=== PATIENT | male | born 1960 | race Caucasian/White ===

== ENCOUNTER 2016-10-31 19:41 | Observation (INO) | payer BC ==
[2016-10-31] MEDS ORDERED: Albuterol/Ipratropium 3.0-0.5 MG/3 ML Neb Soln ONE (19:46)
[2016-10-31] MEDS ORDERED: Albuterol/Ipratropium 3.0-0.5 MG/3 ML Neb Soln NEB ONE ×2 (19:52→20:15)
--- NOTE | 2016-10-31 20:27 | EDM.PDOC ---
ED HISTORY OF PRESENT ILLNESS - General Chief Complaint: Respiratory Problem Stated Complaint: TROUBLE BREATHING Time Seen by Provider: 10/31/16 19:55 Source of Information: Reports: Patient History Limitations: Reports: No limitations - History of Present Illness INITIAL COMMENTS - FREE TEXT/NARRATIVE: HISTORY AND PHYSICAL: History of present illness: Patient is a 56 year old smoker who presents to the emergency department with cough and shortness of breath for 3 days. He thought it was just a cold and so he has been using alkaseltzer but today his cough was making him lightheaded and he feels tightness in his chest. He smokes and has mild history of COPD. He uses an albuterol inhaler PRN. No vomiting. No fevers. No sore throat or headache. Review of systems: As per history of present illness and below otherwise all systems reviewed and negative. Past medical history: As per history of present illness and as reviewed below otherwise noncontributory. Surgical history: As per history of present illness and as reviewed below otherwise noncontributory. Social history: No reported history of drug or alcohol abuse. Family history: As per history of present illness and as reviewed below otherwise noncontributory. Physical exam: General: Non toxic. Vitals reviewed. Hypoxic and mildly tachypneic. HEENT: Atraumatic, normocephalic, mucous membranes moist, throat clear, neck supple, nontender, trachea midline. Lungs: Coarse breath sounds, expiratory wheezing. Heart: S1S2, regular, negative for clicks, rubs, or JVD. Abdomen: Soft, nondistended, nontender. Pelvis: Stable nontender. Genitourinary: Deferred. Rectal: Deferred. Extremities: Atraumatic, negative for cords or calf pain or edema. Neurovascular unremarkable. Neuro: Awake, alert, oriented. Motor and sensory unremarkable throughout. Exam nonfocal. Diagnostics: chest xray Therapeutics: duo neb x 2 Impression: COPD exacerbation Plan: I spoke with Dr. Fields about admission based off his hypoxia on RA on admission. He accepted admission and patient was agreeable to stay. Definitive disposition and diagnosis as appropriate pending reevaluation and review of above. - Related Data Allergies/ADRs: Allergies Allergy/AdvReac Type Severity Reaction Status Date / Time latex Allergy Blisters Verified 10/31/16 19:50 Home Meds: Home Meds Albuterol [Ventolin HFA] 1 - 2 puff INH ASDIRECTED 08/14/15 [History] Aspirin [Halfprin] 1 tab PO DAILY 08/14/15 [History] Glimepiride [Glimepiride] 1 tab PO BID 08/14/15 [History] Krill/Om-3/DHA/EPA/Phospho/Ast [Krill Oil 1,000 mg Softgel] 1 cap PO DAILY 08/14 [History] Linagliptin [Tradjenta] 1 tab PO DAILY 08/14/15 [History] Multivitamin [Multi-Day Vitamins] 1 tab PO DAILY 08/14/15 [History] Pioglitazone HCl 2 tab PO DAILY 08/14/15 [History] Ramipril [Altace] 1 tab PO DAILY 08/14/15 [History] Simvastatin [Simvastatin] 1 tab PO DAILY 08/14/15 [History] metFORMIN HCl [Metformin HCl ER] 2 tab PO BIDMEALS 08/14/15 [History] Past Medical History Cardiovascular History: Reports: Hypertension Respiratory History: Reports: Asthma, COPD Gastrointestinal History: Reports: Other (see below) Other Gastrointestinal History: Heartburn occasionally Musculoskeletal History: Reports: Other (see below) Other Musculoskeletal History: Left sided Sciatic Nerve Pain, hx: fracturing knuckles, Rt arm, finger, ankle Endocrine/Metabolic History: Reports: Diabetes, type II, Obesity/BMI 30+ Hematologic History: Reports: Blood transfusion(s) Other Hematologic History: Blood transfusion after my tonsillectomy when I was 10 yrs old Dermatologic History: Reports: Other (see below) Other Dermatologic History: Rash to hands, think it is from 'welding' - Infectious Disease History Infectious Disease History: Reports: Chicken pox, Measles, Mumps - Past Surgical History HEENT Surgical History: Reports: Naso-sinus surgery, Tonsillectomy GI Surgical History: Reports: Appendectomy Social & Family History - Family History Family Medical History: Noncontributory - Tobacco Use Smoking Status *Q: Current Every Day Smoker Years of Tobacco use: 35 Packs/Tins Daily: 2.5 - Caffeine Use Caffeine Use: Reports: None - Recreational Drug Use Recreational Drug Use: No Drug Use in Last 12 Months: No ED ROS GENERAL - Review of Systems Review Of Systems: ROS reveals no pertinent complaints other than HPI. ED EXAM, GENERAL - Physical Exam Exam: See Below (See dictation) Course - Vital Signs Last Recorded V/S: Last Vital Signs Temp 37.2 C 10/31/16 19:48 Pulse 93 10/31/16 20:35 Resp 20 10/31/16 20:35 BP 131/76 10/31/16 20:35 Pulse Ox 99 10/31/16 20:35 - Orders/Labs/Meds Orders: Active Orders 24 hr Category Date Time Status Patient Status [ADT] Routine ADT 10/31/16 21:00 Active Patient Status [ADT] Stat ADT 10/31/16 21:12 Ordered Oxygen Therapy [RC] PRN Care 10/31/16 21:00 Active POC Glucose [Blood Glucose Check, Bedside] [RC] Care 10/31/16 21:08 Active QIDACANDBED RT Aerosol Therapy [RC] ASDIRECTED Care 10/31/16 19:52 Active RT Aerosol Therapy [RC] ASDIRECTED Care 10/31/16 20:15 Ordered RT Aerosol Therapy [RC] ASDIRECTED Care 10/31/16 21:02 Active VTE/DVT Education [RC] PER UNIT ROUTINE Care 10/31/16 21:00 Active Vital Signs [RC] Q4H Care 10/31/16 21:00 Active ADA Diabetic [[place] Diet] [DIET Diet 10/31/16 Breakfast Active ] Chest 2V [CR] Stat Exams 10/31/16 20:15 Ordered BASIC METABOLIC PANEL,BMP [CHEM] AM Lab 11/01/16 05:11 Ordered CBC WITH AUTO DIFF [HEME] AM Lab 11/01/16 05:11 Ordered CULTURE BLOOD [BC] Stat Lab 10/31/16 20:41 Ordered CULTURE BLOOD [BC] Stat Lab 10/31/16 20:41 Ordered INFLUENZA A+B AG SCREEN [RM] Stat Lab 10/31/16 20:40 Uncollected MAGNESIUM [CHEM] AM Lab 11/01/16 05:11 Ordered Acetaminophen [Tylenol] Med 10/31/16 21:00 Ordered 650 mg PO Q4H PRN Albuterol/Ipratropium [DuoNeb 3.0-0.5 MG/3 ML] Med 10/31/16 22:00 Ordered 3 ml NEB Q4HRRT Aspirin [Halfprin] Med 11/01/16 09:00 Ordered DOSE mg PO DAILY Azithromycin [Zithromax] 500 mg Med 10/31/16 20:40 Ordered Sodium Chloride 0.9% [Normal Saline] 250 ml IV ONETIME Bisacodyl [Dulcolax] Med 10/31/16 21:00 Ordered 5 mg PO DAILY PRN Enoxaparin [Lovenox] Med 11/01/16 16:00 Ordered 40 mg SUBCUT DAILY Glimepiride Med 11/01/16 09:00 Ordered DOSE mg PO BID Insulin Aspart [NovoLOG] Med 10/31/16 21:15 Ordered See Protocol SUBCUT ACBED Krill/Om-3/DHA/EPA/Phospho/Ast [Krill Oil 1,000 mg Med 11/01/16 09:00 Ordered Softgel] 1 cap PO DAILY Levofloxacin/Dextrose 5%-Water [Levaquin in D5W 500 MG/ Med 11/01/16 08:00 Ordered 100 ML] 500 mg Premix Bag 1 bag IV Q24H Linagliptin Med 11/01/16 09:00 Ordered 1 tab PO DAILY Multivitamins [Tab-A-Clayton] Med 11/01/16 09:00 Ordered 1 tab PO DAILY Pioglitazone [Actos] Med 11/01/16 09:00 Ordered DOSE mg PO DAILY Ramipril [Altace] Med 11/01/16 09:00 Ordered DOSE mg PO DAILY Simvastatin [Zocor] Med 11/01/16 09:00 Ordered DOSE mg PO DAILY Temazepam [Restoril] Med 10/31/16 21:00 Ordered 15 mg PO BEDTIME PRN metFORMIN HCl [Metformin HCl ER] Med 11/01/16 08:00 Ordered 2 tab PO BIDMEALS methylPREDNISolone Sod Succ [Solu-MEDROL] Med 11/01/16 08:00 Ordered 125 mg IVPUSH Q12H Blood Culture x2 Reflex Set [OM.PC] Stat Oth 10/31/16 20:40 Ordered Resuscitation Status Routine Resus Stat 10/31/16 21:00 Ordered Medication Orders Acetaminophen (Tylenol) 650 mg PO Q4H PRN PRN Reason: Pain (Mild 1-3)/fever Albuterol/Ipratropium (Duoneb 3.0-0.5 Mg/3 Ml) 3 ml NEB Q4HRRT [facility] Aspirin (Halfprin) mg PO DAILY [facility] Bisacodyl (Dulcolax) 5 mg PO DAILY PRN PRN Reason: Constipation Enoxaparin Sodium (Lovenox) 40 mg SUBCUT DAILY [facility] Glimepiride (Glimepiride) mg PO BID [facility] Azithromycin 500 mg/ Sodium (Chloride) 250 mls @ 250 mls/hr IV ONETIME ONE Stop: 10/31/16 21:39 Levofloxacin/Dextrose 500 mg/ (Premix) 100 mls @ 100 mls/hr IV Q24H [facility] Insulin Aspart (Novolog) 0 unit SUBCUT ACBED [facility] PRN Reason: Protocol Methylprednisolone Sodium Succinate (Solu-Medrol) 125 mg IVPUSH Q12H [facility] Multivitamins/Minerals/Vitamin C (Tab-A-Clayton) 1 tab PO DAILY [facility] Non-Formulary Medication (Krill/Om-3/Dha/Epa/Phospho/Ast [Krill Oil 1,000 Mg Softgel]) 1 cap PO DAILY [facility] Non-Formulary Medication (Linagliptin) 1 tab PO DAILY [facility] Non-Formulary Medication (Metformin Hcl [Metformin Hcl Er]) 2 tab PO BIDMEALS [facility] Pioglitazone HCl (Actos) mg PO DAILY [facility] Ramipril (Altace) mg PO DAILY [facility] Simvastatin (Zocor) mg PO DAILY [facility] Temazepam (Restoril) 15 mg PO BEDTIME PRN PRN Reason: Sleep Labs: Laboratory Tests 10/31/16 10/31/16 Range/Units 19:46 19:46 WBC 10.32 (4.0-11.0) K/uL RBC 4.81 (4.50-5.90) M/uL Hgb 15.4 (13.0-17.0) g/dL Hct 45.9 (38.0-50.0) % MCV 95.4 (80.0-98.0) fL MCH 32.0 (27.0-32.0) pg MCHC 33.6 (31.0-37.0) g/dL RDW Std Deviation 47.2 (28.0-62.0) fl RDW Coeff of Janey 14 (11.0-15.0) % Plt Count 179 (150-400) K/uL MPV 9.10 (7.40-12.00) fL Neut % (Auto) 76.9 (48.0-80.0) % Lymph % (Auto) 12.4 L (16.0-40.0) % [place] % (Auto) 9.1 (0.0-15.0) % Eos % (Auto) 1.5 (0.0-7.0) % Baso % (Auto) 0.1 (0.0-1.5) % Neut # (Auto) 7.9 H (1.4-5.7) K/uL Lymph # (Auto) 1.3 (0.6-2.4) K/uL [place] # (Auto) 0.9 H (0.0-0.8) K/uL Eos # (Auto) 0.2 (0.0-0.7) K/uL Baso # (Auto) 0.0 (0.0-0.1) K/uL Nucleated RBC % 0.0 /100WBC Nucleated RBCs # 0 K/uL Sodium 141 (136-146) mmol/L Potassium 4.3 (3.5-5.1) mmol/L Chloride 104 (98-110) mmol/L Carbon Dioxide 25 (21-31) mmol/L BUN 12 (6.0-23.0) mg/dL Creatinine 0.9 (0.6-1.5) mg/dL Est Cr Clr Drug Dosing 93.83 mL/min Estimated GFR (MDRD) > 60.0 ml/min Glucose 166 H (60-110) mg/dL Calcium 9.5 (8.8-10.8) mg/dL Total Bilirubin 0.4 (0.1-1.5) mg/dL AST 21 (5-40) IU/L ALT 26 (8-54) IU/L Alkaline Phosphatase 101 (40-150) Total Protein 7.3 (6.0-8.0) g/dL Albumin 4.4 (3.5-5.0) g/dL Globulin 2.9 (2.0-3.5) g/dL Albumin/Globulin Ratio 1.5 (1.3-2.8) Meds: Medications Generic Name Dose Route Start Last Admin Trade Name Freq PRN Reason Stop Dose Admin Acetaminophen 650 mg 10/31/16 21:00 Tylenol PO Q4H PRN Pain (Mild 1-3)/fever Albuterol/Ipratropium 3 ml 10/31/16 22:00 Duoneb 3.0-0.5 Mg/3 Ml NEB Q4HRRT [facility] Aspirin mg 11/01/16 09:00 Halfprin PO DAILY [facility] Bisacodyl 5 mg 10/31/16 21:00 Dulcolax PO DAILY PRN Constipation Enoxaparin Sodium 40 mg 11/01/16 16:00 Lovenox SUBCUT DAILY [facility] Glimepiride mg 11/01/16 09:00 Glimepiride PO BID [facility] Azithromycin 500 mg/ Sodium 250 mls @ 250 mls/hr 10/31/16 20:40 Chloride IV 10/31/16 21:39 ONETIME ONE Levofloxacin/Dextrose 500 mg/ 100 mls @ 100 mls/hr 11/01/16 08:00 Premix IV Q24H [facility] Insulin Aspart 0 unit 10/31/16 21:15 Novolog SUBCUT ACBED [facility] Protocol Methylprednisolone Sodium Succinate 125 mg 11/01/16 08:00 Solu-Medrol IVPUSH Q12H [facility] Multivitamins/Minerals/Vitamin C 1 tab 11/01/16 09:00 Tab-A-Clayton PO DAILY [facility] Non-Formulary Medication 1 cap 11/01/16 09:00 Krill/Om-3/Dha/Epa/Phospho/Ast [Krill Oil 1,000 Mg Softgel] PO DAILY [facility] Non-Formulary Medication 1 tab 11/01/16 09:00 Linagliptin PO DAILY [facility] Non-Formulary Medication 2 tab 11/01/16 08:00 Metformin Hcl [Metformin Hcl Er] PO BIDMEALS [facility] Pioglitazone HCl mg 11/01/16 09:00 Actos PO DAILY [facility] Ramipril mg 11/01/16 09:00 Altace PO DAILY [facility] Simvastatin mg 11/01/16 09:00 Zocor PO DAILY [facility] Temazepam 15 mg 10/31/16 21:00 Restoril PO BEDTIME PRN Sleep Discontinued Medications Generic Name Dose Route Start Last Admin Trade Name Freq PRN Reason Stop Dose Admin Albuterol/Ipratropium Confirm 10/31/16 19:46 10/31/16 19:52 Duoneb 3.0-0.5 Mg/3 Ml Administered 10/31/16 19:47 3 ml Dose Administration 3 ml .ROUTE .STK-MED ONE Albuterol/Ipratropium 3 ml 10/31/16 19:52 10/31/16 20:18 Duoneb 3.0-0.5 Mg/3 Ml NEB 10/31/16 19:53 Not Given ONETIME ONE Albuterol/Ipratropium 3 ml 10/31/16 20:15 10/31/16 20:30 Duoneb 3.0-0.5 Mg/3 Ml NEB 10/31/16 20:16 3 ml ONETIME ONE Administration Ceftriaxone Sodium/Dextrose 1 50 mls @ 100 mls/hr 10/31/16 20:41 gm/ Premix IV 10/31/16 21:10 ONETIME ONE Methylprednisolone Sodium Succinate 125 mg 10/31/16 20:55 Solu-Medrol IVPUSH 10/31/16 20:56 ONETIME ONE Departure - Departure Time of Disposition: 21:00 Disposition: Admitted As Inpatient 68 Condition: good Clinical Impression: COPD exacerbation Forms: ED Department Discharge - My Orders Last 24 Hours: My Active Orders 10/31/16 19:52 RT Aerosol Therapy [RC] ASDIRECTED 10/31/16 20:15 RT Aerosol Therapy [RC] ASDIRECTED Chest 2V [CR] Stat 10/31/16 20:40 INFLUENZA A+B AG SCREEN [RM] Stat Azithromycin [Zithromax] 500 mg Sodium Chloride 0.9% [Normal Saline] 250 ml IV ONETIME Blood Culture x2 Reflex Set [OM.PC] Stat 10/31/16 20:41 CULTURE BLOOD [BC] Stat CULTURE BLOOD [BC] Stat 10/31/16 21:12 Patient Status [ADT] Stat - Assessment/Plan Last 24 Hours: My Active Orders 10/31/16 19:52 RT Aerosol Therapy [RC] ASDIRECTED 10/31/16 20:15 RT Aerosol Therapy [RC] ASDIRECTED Chest 2V [CR] Stat 10/31/16 20:40 INFLUENZA A+B AG SCREEN [RM] Stat Azithromycin [Zithromax] 500 mg Sodium Chloride 0.9% [Normal Saline] 250 ml IV ONETIME Blood Culture x2 Reflex Set [OM.PC] Stat 10/31/16 20:41 CULTURE BLOOD [BC] Stat CULTURE BLOOD [BC] Stat 10/31/16 21:12 Patient Status [ADT] Stat
[2016-10-31] MEDS ORDERED: Azithromycin 500 MG in Sodium Chloride 0.9% 250 ML IV ONE (20:40)
[2016-10-31] MEDS ORDERED: cefTRIAXone 1 GM in Premix Bag 1 BAG IV ONE (20:41)
[2016-10-31] MEDS ORDERED: methylPREDNISolone Sodium Succinate 125 MG/2 ML SDV IVPUSH ONE (20:55)
[2016-10-31] MEDS ORDERED: Temazepam 15 MG Cap PO PRN (21:00)
[2016-10-31] MEDS ORDERED: Bisacodyl 5 MG Tab PO PRN (21:00)
[2016-10-31] MEDS ORDERED: Acetaminophen 325 MG Tab PO PRN (21:00)
[2016-10-31 21:05] LABS: CHLORIDE,CL 104 mmol/L (98-110); SODIUM,NA 141 mmol/L (136-146)
--- NOTE | 2016-10-31 21:12 | PCM.HP ---
H&P History of Present Illness - General Admit Problem/Dx: Admission Diagnosis/Problem Admission Diagnosis/Problem COPD, Moderate chronic obstructive pulmonary disease - Related Data Allergies/Adverse Reactions: Allergies Allergy/AdvReac Type Severity Reaction Status Date / Time latex Allergy Blisters Verified 10/31/16 19:50 Home Medications: Home Meds Albuterol [Ventolin HFA] 1 - 2 puff INH ASDIRECTED 08/14/15 [History] Aspirin [Halfprin] 1 tab PO DAILY 08/14/15 [History] Glimepiride [Glimepiride] 1 tab PO BID 08/14/15 [History] Krill/Om-3/DHA/EPA/Phospho/Ast [Krill Oil 1,000 mg Softgel] 1 cap PO DAILY 08/14 [History] Linagliptin [Tradjenta] 1 tab PO DAILY 08/14/15 [History] Multivitamin [Multi-Day Vitamins] 1 tab PO DAILY 08/14/15 [History] Pioglitazone HCl 2 tab PO DAILY 08/14/15 [History] Ramipril [Altace] 1 tab PO DAILY 08/14/15 [History] Simvastatin [Simvastatin] 1 tab PO DAILY 08/14/15 [History] metFORMIN HCl [Metformin HCl ER] 2 tab PO BIDMEALS 08/14/15 [History] Past Medical History Cardiovascular History: Reports: Hypertension. Denies: Heart Failure, [place] Respiratory History: Reports: Asthma, COPD Gastrointestinal History: Reports: Other (see below). Denies: Cirrhosis Other Gastrointestinal History: Heartburn occasionally Genitourinary History: Denies: Chronic renal insuffiency Musculoskeletal History: Reports: Other (see below) Other Musculoskeletal History: Left sided Sciatic Nerve Pain, hx: fracturing knuckles, Rt arm, finger, ankle Neurological History: Denies: Alzheimers disease, CVA, MS, Parkinson's Endocrine/Metabolic History: Reports: Diabetes, type II, Obesity/BMI 30+ Hematologic History: Reports: Blood transfusion(s) Other Hematologic History: Blood transfusion after my tonsillectomy when I was 10 yrs old Oncologic (Cancer) History: Reports: None Dermatologic History: Reports: Other (see below) Other Dermatologic History: Rash to hands, think it is from 'welding' - Infectious Disease History Infectious Disease History: Reports: Chicken pox, Measles, Mumps - Past Surgical History HEENT Surgical History: Reports: Naso-sinus surgery, Tonsillectomy GI Surgical History: Reports: Appendectomy Social & Family History - Family History Family Medical History: Noncontributory - Tobacco Use Smoking Status *Q: Current Every Day Smoker Years of Tobacco use: 35 Packs/Tins Daily: 2.5 - Caffeine Use Caffeine Use: Reports: None - Alcohol Use Alcohol Use History: Yes Alcohol Use Comment: rarely drinks alcohol; perhaps one or two drinks per year - Recreational Drug Use Recreational Drug Use: No Drug Use in Last 12 Months: No H&P Review of Systems - Review of Systems: Review Of Systems: See Below General: Denies: fever HEENT: Denies: ear pain, eye pain Pulmonary: Reports: Shortness of Breath, Wheezing, Cough. Denies: Hemoptysis Cardiovascular: Denies: chest pain Gastrointestinal: Denies: Abdominal pain, Black stool, Bloody stool, Difficulty swallowing, Distension, Melena, Vomiting Genitourinary: Denies: dysuria, frequency, burning, incontinence, hematuria Skin: Denies: cyanosis Neurological: Denies: Seizure Exam - Exam Exam: See Below - Vital Signs Vital Signs: Last Vital Signs Temp 99.0 F 10/31/16 19:48 Pulse 93 10/31/16 20:35 Resp 20 10/31/16 20:35 BP 131/76 10/31/16 20:35 Pulse Ox 99 10/31/16 20:35 Weight: 99.79 kg - Exam Quality Assessment: supplemental oxygen General: alert, oriented HEENT: EOMI Neck: supple, trachea midline Lungs: Wheezing Cardiovascular: regular rate, regular rhythm Abdomen: soft. No: tenderness (Male) Exam: Deferred Neurological: cranial nerves intact, normal speech Neuro Extensive - Mental Status: normal mood/affect Neuro Extensive - Motor, Sensory, Reflexes: No: tongue deviation (L), tongue deviation (R), facial palsy (L), facial palsy (R), hemiplagia (L), hemiplagia (R ) - Patient Data Lab Results last 24 hrs: Laboratory Results - last 24 hr 10/31/16 10/31/16 Range/Units 19:46 19:46 WBC 10.32 (4.0-11.0) K/uL RBC 4.81 (4.50-5.90) M/uL Hgb 15.4 (13.0-17.0) g/dL Hct 45.9 (38.0-50.0) % MCV 95.4 (80.0-98.0) fL MCH 32.0 (27.0-32.0) pg MCHC 33.6 (31.0-37.0) g/dL RDW Std Deviation 47.2 (28.0-62.0) fl RDW Coeff of Janey 14 (11.0-15.0) % Plt Count 179 (150-400) K/uL MPV 9.10 (7.40-12.00) fL Neut % (Auto) 76.9 (48.0-80.0) % Lymph % (Auto) 12.4 L (16.0-40.0) % [place] % (Auto) 9.1 (0.0-15.0) % Eos % (Auto) 1.5 (0.0-7.0) % Baso % (Auto) 0.1 (0.0-1.5) % Neut # (Auto) 7.9 H (1.4-5.7) K/uL Lymph # (Auto) 1.3 (0.6-2.4) K/uL [place] # (Auto) 0.9 H (0.0-0.8) K/uL Eos # (Auto) 0.2 (0.0-0.7) K/uL Baso # (Auto) 0.0 (0.0-0.1) K/uL Nucleated RBC % 0.0 /100WBC Nucleated RBCs # 0 K/uL Sodium 141 (136-146) mmol/L Potassium 4.3 (3.5-5.1) mmol/L Chloride 104 (98-110) mmol/L Carbon Dioxide 25 (21-31) mmol/L BUN 12 (6.0-23.0) mg/dL Creatinine 0.9 (0.6-1.5) mg/dL Est Cr Clr Drug Dosing 93.83 mL/min Estimated GFR (MDRD) > 60.0 ml/min Glucose 166 H (60-110) mg/dL Calcium 9.5 (8.8-10.8) mg/dL Total Bilirubin 0.4 (0.1-1.5) mg/dL AST 21 (5-40) IU/L ALT 26 (8-54) IU/L Alkaline Phosphatase 101 (40-150) Total Protein 7.3 (6.0-8.0) g/dL Albumin 4.4 (3.5-5.0) g/dL Globulin 2.9 (2.0-3.5) g/dL Albumin/Globulin Ratio 1.5 (1.3-2.8) Result Diagrams: 10/31/16 19:46 10/31/16 19:46 Pardeep Results last 24 hrs: CXR: no acute disease noted *Q Meaningful Use (ADM) - VTE *Q VTE Criteria *Q: - Stroke *Q Stroke Criteria *Q: - AMI *Q AMI Criteria *Q: - Problem List (1) COPD with acute exacerbation SNOMED Code(s): 106389065 ICD Code: J44.1 - CHRONIC OBSTRUCTIVE PULMONARY DISEASE W (ACUTE) EXACERBATION Status: Acute Current Visit: Yes (2) Diabetes mellitus SNOMED Code(s): 33566283 ICD Code: E11.9 - TYPE 2 DIABETES MELLITUS WITHOUT COMPLICATIONS Status: Acute Current Visit: Yes Problem List Initiated/Reviewed/Updated: Yes Orders Last 24hrs: Active Orders 24 hr Category Date Time Status Patient Status [ADT] Routine ADT 10/31/16 21:00 Ordered Oxygen Therapy [RC] PRN Care 10/31/16 21:00 Ordered POC Glucose [Blood Glucose Check, Bedside] [RC] Care 10/31/16 21:08 Ordered QIDACANDBED RT Aerosol Therapy [RC] ASDIRECTED Care 10/31/16 19:52 Active RT Aerosol Therapy [RC] ASDIRECTED Care 10/31/16 20:15 Active RT Aerosol Therapy [RC] ASDIRECTED Care 10/31/16 21:02 Ordered VTE/DVT Education [RC] PER UNIT ROUTINE Care 10/31/16 21:00 Ordered Vital Signs [RC] Q4H Care 10/31/16 21:00 Ordered ADA Diabetic [[employer] Diet] [DIET Diet 10/31/16 Breakfast Ordered ] Chest 2V [CR] Stat Exams 10/31/16 20:15 Taken BASIC METABOLIC PANEL,BMP [CHEM] AM Lab 11/01/16 05:11 Ordered CBC WITH AUTO DIFF [HEME] AM Lab 11/01/16 05:11 Ordered CULTURE BLOOD [BC] Stat Lab 10/31/16 20:41 Ordered CULTURE BLOOD [BC] Stat Lab 10/31/16 20:41 Ordered INFLUENZA A+B AG SCREEN [RM] Stat Lab 10/31/16 20:49 Ordered MAGNESIUM [CHEM] AM Lab 11/01/16 05:11 Ordered Acetaminophen [Tylenol] Med 10/31/16 21:00 Ordered 650 mg PO Q4H PRN Albuterol/Ipratropium [DuoNeb 3.0-0.5 MG/3 ML] Med 10/31/16 22:00 Ordered 3 ml NEB Q4HRRT Aspirin [Halfprin] Med 11/01/16 09:00 Ordered 1 tab PO DAILY Azithromycin [Zithromax] 500 mg Med 10/31/16 20:40 Active Sodium Chloride 0.9% [Normal Saline] 250 ml IV ONETIME Bisacodyl [Dulcolax] Med 10/31/16 21:00 Ordered 5 mg PO DAILY PRN Enoxaparin [Lovenox] Med 11/01/16 16:00 Ordered 40 mg SUBCUT DAILY Glimepiride Med 11/01/16 09:00 Ordered 1 tab PO BID Insulin Aspart [NovoLOG] Med 10/31/16 21:15 Ordered See Protocol SUBCUT ACBED Krill/Om-3/DHA/EPA/Phospho/Ast [Krill Oil 1,000 mg Med 11/01/16 09:00 Ordered Softgel] 1 cap PO DAILY Levofloxacin/Dextrose 5%-Water [Levaquin in D5W 500 MG/ Med 11/01/16 08:00 Ordered 100 ML] 500 mg Premix Bag 1 bag IV Q24H Linagliptin Med 11/01/16 09:00 Ordered 1 tab PO DAILY Multivitamins [Tab-A-Clayton] Med 11/01/16 09:00 Ordered 1 tab PO DAILY Pioglitazone [Actos] Med 11/01/16 09:00 Ordered 2 tab PO DAILY Ramipril [Altace] Med 11/01/16 09:00 Ordered 1 tab PO DAILY Simvastatin [Zocor] Med 11/01/16 09:00 Ordered 1 tab PO DAILY Temazepam [Restoril] Med 10/31/16 21:00 Ordered 15 mg PO BEDTIME PRN cefTRIAXone [Rocephin in Dextrose,Iso-Osm 1 GM/50 ML] 1 Med 10/31/16 20:41 Active gm Premix Bag 1 bag IV ONETIME metFORMIN HCl [Metformin HCl ER] Med 11/01/16 08:00 Ordered 2 tab PO BIDMEALS methylPREDNISolone Sod Succ [Solu-MEDROL] Med 11/01/16 08:00 Ordered 125 mg IVPUSH Q12H Blood Culture x2 Reflex Set [OM.PC] Stat Oth 10/31/16 20:40 Ordered Resuscitation Status Routine Resus Stat 10/31/16 21:00 Ordered Medication Orders Acetaminophen (Tylenol) 650 mg PO Q4H PRN PRN Reason: Pain (Mild 1-3)/fever Albuterol/Ipratropium (Duoneb 3.0-0.5 Mg/3 Ml) 3 ml NEB Q4HRRT [facility] Aspirin (Halfprin) mg PO DAILY [facility] Bisacodyl (Dulcolax) 5 mg PO DAILY PRN PRN Reason: Constipation Enoxaparin Sodium (Lovenox) 40 mg SUBCUT DAILY [facility] Glimepiride (Glimepiride) mg PO BID [facility] Azithromycin 500 mg/ Sodium (Chloride) 250 mls @ 250 mls/hr IV ONETIME ONE Stop: 10/31/16 21:39 Ceftriaxone Sodium/Dextrose 1 (gm/ Premix) 50 mls @ 100 mls/hr IV ONETIME ONE Stop: 10/31/16 21:10 Levofloxacin/Dextrose 500 mg/ (Premix) 100 mls @ 100 mls/hr IV Q24H [facility] Methylprednisolone Sodium Succinate (Solu-Medrol) 125 mg IVPUSH Q12H [facility] Multivitamins/Minerals/Vitamin C (Tab-A-Clay[place]) 1 tab PO DAILY [facility] Non-Formulary Medication (Krill/Om-3/Dha/Epa/Phospho/Ast [Krill Oil 1,000 Mg Softgel]) 1 cap PO DAILY [facility] Non-Formulary Medication (Linagliptin) 1 tab PO DAILY [facility] Non-Formulary Medication (Metformin Hcl [Metformin Hcl Er]) 2 tab PO BIDMEALS [facility] Pioglitazone HCl (Actos) mg PO DAILY [facility] Ramipril (Altace) mg PO DAILY [facility] Simvastatin (Zocor) mg PO DAILY [facility] Temazepam (Restoril) 15 mg PO BEDTIME PRN PRN Reason: Sleep Assessment/Plan Comment:: admit to observation see orders \Piero Fields MD
[2016-10-31] MEDS: Albuterol/Ipratropium 3.0-0.5 MG/3 ML Neb Soln NEB SCH (22:14)
[2016-10-31] MEDS: Insulin Aspart 100 Units/ML 3 ML Pen SUBCUT SCH (22:23)
[2016-11-01] MEDS: Albuterol/Ipratropium 3.0-0.5 MG/3 ML Neb Soln NEB SCH ×6 (02:44→21:51)
[2016-11-01 06:17] LABS: CHLORIDE,CL 105 mmol/L (98-110); SODIUM,NA 140 mmol/L (136-146)
[2016-11-01] MEDS: Insulin Aspart 100 Units/ML 3 ML Pen SUBCUT SCH ×4 (06:45→20:17)
[2016-11-01] MEDS: metFORMIN 500 MG Tab.ER PO SCH ×2 (07:35→17:06)
[2016-11-01] MEDS: methylPREDNISolone Sodium Succinate 125 MG/2 ML SDV IVPUSH SCH ×2 (07:35→20:17)
[2016-11-01] MEDS: Levofloxacin/Dextrose 5%-Water 500 MG in Premix Bag 1 BAG IV SCH (07:36)
[2016-11-01] MEDS: Pioglitazone 15 MG Tab PO SCH (08:38)
[2016-11-01] MEDS: Aspirin 81 MG Tab.EC PO SCH (08:39)
[2016-11-01] MEDS: Glimepiride 4 MG Tab PO SCH ×2 (08:39→20:17)
[2016-11-01] MEDS: Multivitamin Tab PO SCH (08:39)
[2016-11-01] MEDS: Simvastatin 40 MG Tab PO SCH (08:39)
[2016-11-01] MEDS: [UNRECOGNIZED DRUG - OTHER] PO SCH (08:41)
[2016-11-01] MEDS: KRILL PO SCH (08:41)
[2016-11-01] MEDS: PHOSPHO PO SCH (08:41)
[2016-11-01] MEDS: EPA PO SCH (08:41)
[2016-11-01] MEDS: DHA PO SCH (08:41)
[2016-11-01] MEDS: AST PO SCH (08:41)
--- NOTE | 2016-11-01 13:03 | PCM.PN ---
- General Info Date of Service: 11/01/16 Subjective Update: He is feeling better. - Patient Data Vitals - most recent: Last Vital Signs Temp 97.7 F 11/01/16 11:51 Pulse 101 H 11/01/16 11:51 Resp 20 11/01/16 11:51 BP 109/61 11/01/16 11:51 Pulse Ox 90 L 11/01/16 11:51 Weight - most recent: 99.138 kg I&O - last 24 hours: Intake & Output 10/31/16 11/01/16 11/01/16 22:59 06:59 14:59 Intake Total 255 480 100 Output Total 750 Balance 255 -270 100 Lab Results last 24 hrs: Laboratory Results - last 24 hr 11/01/16 11/01/16 Range/Units 05:40 05:40 WBC 7.54 (4.0-11.0) K/uL RBC 4.40 L (4.50-5.90) M/uL Hgb 13.6 (13.0-17.0) g/dL Hct 42.3 (38.0-50.0) % MCV 96.1 (80.0-98.0) fL MCH 30.9 (27.0-32.0) pg MCHC 32.2 (31.0-37.0) g/dL RDW Std Deviation 47.4 (28.0-62.0) fl RDW Coeff of Janey 14 (11.0-15.0) % Plt Count 173 (150-400) K/uL MPV 9.20 (7.40-12.00) fL Neut % (Auto) 92.6 H (48.0-80.0) % Lymph % (Auto) 6.6 L (16.0-40.0) % Charles % (Auto) 0.8 (0.0-15.0) % Eos % (Auto) 0.0 (0.0-7.0) % Baso % (Auto) 0.0 (0.0-1.5) % Neut # (Auto) 7.0 H (1.4-5.7) K/uL Lymph # (Auto) 0.5 L (0.6-2.4) K/uL Charles # (Auto) 0.1 (0.0-0.8) K/uL Eos # (Auto) 0.0 (0.0-0.7) K/uL Baso # (Auto) 0.0 (0.0-0.1) K/uL Nucleated RBC % 0.0 /100WBC Nucleated RBCs # 0 K/uL Sodium 140 (136-146) mmol/L Potassium 4.3 (3.5-5.1) mmol/L Chloride 105 (98-110) mmol/L Carbon Dioxide 23 (21-31) mmol/L BUN 13 (6.0-23.0) mg/dL Creatinine 0.9 (0.6-1.5) mg/dL Est Cr Clr Drug Dosing 93.83 mL/min Estimated GFR (MDRD) > 60.0 ml/min Glucose 283 H (60-110) mg/dL Calcium 9.0 (8.8-10.8) mg/dL Magnesium 1.6 (1.5-2.3) mEq/L Med Orders - Current: Current Medications Acetaminophen (Tylenol) 650 mg PO Q4H PRN PRN Reason: Pain (Mild 1-3)/fever Albuterol/Ipratropium (Duoneb 3.0-0.5 Mg/3 Ml) 3 ml NEB Q4HRRT [facility] Last Admin: 11/01/16 09:50 Dose: 3 ml Aspirin (Halfprin) 81 mg PO DAILY [facility] Last Admin: 11/01/16 08:39 Dose: 81 mg Benzonatate (Tessalon Perles) 200 mg PO TID PRN PRN Reason: Sore Throat Bisacodyl (Dulcolax) 5 mg PO DAILY PRN PRN Reason: Constipation Enoxaparin Sodium (Lovenox) 40 mg SUBCUT DAILY [facility] Glimepiride (Glimepiride) 4 mg PO BID [facility] Last Admin: 11/01/16 08:39 Dose: 4 mg Levofloxacin/Dextrose 500 mg/ (Premix) 100 mls @ 100 mls/hr IV Q24H [facility] Last Admin: 11/01/16 07:36 Dose: 100 mls/hr Insulin Aspart (Novolog) 0 unit SUBCUT ACBED [facility] PRN Reason: Protocol Last Admin: 11/01/16 12:03 Dose: 4 unit Metformin HCl (Glucophage Xr) 1,000 mg PO BIDMEALS [facility] Last Admin: 11/01/16 07:35 Dose: 1,000 mg Methylprednisolone Sodium Succinate (Solu-Medrol) 125 mg IVPUSH Q12H [facility] Last Admin: 11/01/16 07:35 Dose: 125 mg Multivitamins/Minerals/Vitamin C (Tab-A-Clayton) 1 tab PO DAILY [facility] Last Admin: 11/01/16 08:39 Dose: 1 tab Krill/Om-3/Dha/Epa/Phospho/Ast [Krill Oil] 1,000mg 1 each PO DAILY [facility] Last Admin: 11/01/16 08:41 Dose: Not Given Linagliptin 5mg Tab 1 each PO DAILY [facility] Last Admin: 11/01/16 08:42 Dose: Not Given Pioglitazone HCl (Actos) 30 mg PO DAILY [facility] Last Admin: 11/01/16 08:38 Dose: 30 mg Ramipril (Altace) 2.5 mg PO DAILY [facility] Last Admin: 11/01/16 08:39 Dose: 2.5 mg Simvastatin (Zocor) 40 mg PO DAILY [facility] Last Admin: 11/01/16 08:39 Dose: 40 mg Temazepam (Restoril) 15 mg PO BEDTIME PRN PRN Reason: Sleep Discontinued Medications Albuterol/Ipratropium (Duoneb 3.0-0.5 Mg/3 Ml) Confirm Administered Dose 3 ml .ROUTE .STK-MED ONE Stop: 10/31/16 19:47 Last Admin: 10/31/16 19:52 Dose: 3 ml Albuterol/Ipratropium (Duoneb 3.0-0.5 Mg/3 Ml) 3 ml NEB ONETIME ONE Stop: 10/31/16 19:53 Last Admin: 10/31/16 20:18 Dose: Not Given Albuterol/Ipratropium (Duoneb 3.0-0.5 Mg/3 Ml) 3 ml NEB ONETIME ONE Stop: 10/31/16 20:16 Last Admin: 10/31/16 20:30 Dose: 3 ml Azithromycin 500 mg/ Sodium (Chloride) 250 mls @ 250 mls/hr IV ONETIME ONE Stop: 10/31/16 21:39 Last Admin: 10/31/16 22:17 Dose: 250 mls/hr Ceftriaxone Sodium/Dextrose 1 (gm/ Premix) 50 mls @ 100 mls/hr IV ONETIME ONE Stop: 10/31/16 21:10 Last Admin: 10/31/16 21:22 Dose: 100 mls/hr Methylprednisolone Sodium Succinate (Solu-Medrol) 125 mg IVPUSH ONETIME ONE Stop: 10/31/16 20:56 Last Admin: 10/31/16 21:20 Dose: 125 mg - Exam General: alert, oriented, no acute distress Lungs: Decreased breath sounds. No: Rhonchi, Wheezing Cardiovascular: Regular Rate, Regular Rhythm - Problem List & Annotations (1) COPD with acute exacerbation SNOMED Code(s): 963046429 Code(s): J44.1 - CHRONIC OBSTRUCTIVE PULMONARY DISEASE W (ACUTE) EXACERBATION Status: Acute Current Visit: Yes (2) Diabetes mellitus SNOMED Code(s): 13717700 Code(s): E11.9 - TYPE 2 DIABETES MELLITUS WITHOUT COMPLICATIONS Status: Acute Current Visit: Yes - Problem List Review Problem List Initiated/Reviewed/Updated: Yes - My Orders Last 24 Hours: My Active Orders 10/31/16 21:08 POC Glucose [Blood Glucose Check, Bedside] [RC] QIDACANDBED 10/31/16 21:15 Insulin Aspart [NovoLOG] See Protocol SUBCUT ACBED 11/01/16 08:00 metFORMIN [Glucophage XR] 1,000 mg PO BIDMEALS 11/01/16 09:00 Aspirin [Halfprin] 81 mg PO DAILY Glimepiride 4 mg PO BID Multivitamins [Tab-A-Clayton] 1 tab PO DAILY Patient's Own Medication [Ptom] 1 each PO DAILY Patient's Own Medication [Ptom] 1 each PO DAILY Pioglitazone [Actos] 30 mg PO DAILY Ramipril [Altace] 2.5 mg PO DAILY Simvastatin [Zocor] 40 mg PO DAILY 11/01/16 12:08 Benzonatate [Tessalon Perles] 200 mg PO TID PRN - Plan Plan:: admit to observation see orders \Piero Fields MD 11/01/2016 We discussed his low oxygen and the fact that he might need home oxygen. We discussed smoking cessation possible discharge tomorrow He might need home oxygen. Piero Fields MD
[2016-11-01] MEDS: Enoxaparin 40 MG/0.4 ML Syringe SUBCUT SCH (16:09)
[2016-11-01] MEDS ORDERED: Benzocaine/Cetylpyridinium/Menthol Lozenge MUCMEM PRN (17:34)
[2016-11-01] MEDS: Benzonatate 100 MG Cap PO PRN (20:25)
[2016-11-02] MEDS: Albuterol/Ipratropium 3.0-0.5 MG/3 ML Neb Soln NEB SCH ×3 (01:04→11:34)
[2016-11-02 05:24] LABS: CHLORIDE,CL 104 mmol/L (98-110); SODIUM,NA 138 mmol/L (136-146)
[2016-11-02] MEDS: Insulin Aspart 100 Units/ML 3 ML Pen SUBCUT SCH ×2 (07:15→11:39)
[2016-11-02] MEDS: Benzonatate 100 MG Cap PO PRN (07:17)
[2016-11-02] MEDS: methylPREDNISolone Sodium Succinate 125 MG/2 ML SDV IVPUSH SCH (08:23)
[2016-11-02] MEDS: Levofloxacin/Dextrose 5%-Water 500 MG in Premix Bag 1 BAG IV SCH (08:32)
[2016-11-02] MEDS: metFORMIN 500 MG Tab.ER PO SCH (09:06)
[2016-11-02] MEDS: Glimepiride 4 MG Tab PO SCH (09:09)
[2016-11-02] MEDS: Aspirin 81 MG Tab.EC PO SCH (09:09)
[2016-11-02] MEDS: Simvastatin 40 MG Tab PO SCH (09:10)
[2016-11-02] MEDS: Multivitamin Tab PO SCH (09:10)
[2016-11-02] MEDS: Pioglitazone 15 MG Tab PO SCH (09:12)
[2016-11-02] MEDS: Enoxaparin 40 MG/0.4 ML Syringe SUBCUT SCH (09:13)
[2016-11-02] MEDS: EPA PO SCH (09:17)
[2016-11-02] MEDS: [UNRECOGNIZED DRUG - OTHER] PO SCH (09:17)
[2016-11-02] MEDS: KRILL PO SCH (09:17)
[2016-11-02] MEDS: PHOSPHO PO SCH (09:17)
[2016-11-02] MEDS: DHA PO SCH (09:17)
[2016-11-02] MEDS: AST PO SCH (09:17)
[2016-11-02 11:32] VITALS: BP 119/70
--- NOTE | 2016-11-02 13:05 | PCM.DCSUM1 ---
Discharge Summary - Hospital Course HPI Initial Comments: 56 yo male admitted 11/01/16 for hypoxia\COPD exacerbation with pmh of COPD, htn , hyperlipidemia, type 2 diabetes. Brief History: Patient initally presented to ED with cough and shortness of breath x 3 days (current smoker). He initially believed it was just a cold and had been using alkaseltzer but on day of admission his cough was making him lightheaded and he felt tightness in his chest. He continues to smoke and has a mild history of COPD. He uses an albuterol inhaler PRN. He denied vomiting, fevers, sore throat, headache or diarrhea. - Discharge Data Discharge Date: 11/02/16 Discharge Disposition: Home, Self-Care 01 Condition: Good - Patient Summary/Data Hospital Course: In ED he was hypoxic with and O2 sat of 86% on room air. His CXR showed a cardiac silhouette that was at the upper limis of normal but no acute infiltrate. He was admitted for observation for suspected COPD exacerbation. Patient was placed on Solumedrol, Duonebs, and Levaquin while in hospital. He did well throughout his stay and on day of discharge he was sating 93% on room air. He was discharged in good condition with a follow-up appointment with his PCP Dr. Farias as well as prescriptions for Azithromycin, Prednisone, Advair, and Singular. He was instructed to return to ED if he had any return of his symptoms. - Patient Instructions Diet: Diabetic Diet Activity: Rest and Relax Today Driving: Do Not Drive Showering/Bathing: May Shower Notify Provider of: Fever, Increased Pain, Nausea and/or Vomiting Other/Special Instructions: Take medications as prescribed. Follow-up with Dr. Farias. - Discharge Plan Prescriptions/Med Rec: Azithromycin [IJD: Azithromycin] 250 mg PO DAILY #6 tab Benzonatate [Tessalon Perles] 200 mg PO TID PRN #15 cap PRN Reason: Cough Fluticasone/Salmeterol [Advair Diskus 250-50] 1 puff INH BID #1 inhaler Montelukast Sodium [Singulair] 10 mg PO DAILY #14 tablet Prednisone [IJD: predniSONE] 20 mg PO WITHBREAKFAST #30 tab Home Medications: Home Meds Albuterol [Ventolin HFA] 1 - 2 puff INH Q6H PRN 08/14/15 [History] Aspirin [Halfprin] 81 mg PO DAILY 08/14/15 [History] Glimepiride 4 mg PO BID 08/14/15 [History] Krill/Om-3/DHA/EPA/Phospho/Ast [Krill Oil 1,000 mg Softgel] 1 cap PO DAILY 08/14 [History] Linagliptin [Tradjenta] 5 mg PO DAILY 08/14/15 [History] Multivitamin [Multi-Day Vitamins] 1 tab PO DAILY 08/14/15 [History] Pioglitazone HCl 30 mg PO DAILY 08/14/15 [History] Ramipril [Altace] 2.5 mg PO DAILY 08/14/15 [History] Simvastatin 40 mg PO BEDTIME 08/14/15 [History] metFORMIN HCl [Metformin HCl ER] 1,000 mg PO BIDMEALS 08/14/15 [History] Azithromycin [IJD: Azithromycin] 250 mg PO DAILY #6 tab 11/02/16 [Rx] Benzonatate [Tessalon Perles] 200 mg PO TID PRN #15 cap 11/02/16 [Rx] Fluticasone/Salmeterol [Advair Diskus 250-50] 1 puff INH BID #1 inhaler [Rx] Montelukast Sodium [Singulair] 10 mg PO DAILY #14 tablet 11/02/16 [Rx] Prednisone [IJD: predniSONE] 20 mg PO WITHBREAKFAST #30 tab 11/02/16 [Rx] Patient Handouts: Chronic Obstructive Pulmonary Disease Exacerbation, Easy-to- Read, Montelukast oral tablets, Fluticasone; Salmeterol inhalation powder, Prednisone tablets, Benzonatate capsules Referrals: Tony Farias MD [Physician] - 11/09/16 8:45 am - Discharge Summary/Plan Comment DC Time >30 min.: Yes Discharge Summary/Plan Comment: 56 yo male admitted 11/01/16 for hypoxia\COPD exacerbation with pmh of COPD, htn , hyperlipidemia, type 2 diabetes. Patient initally presented to ED with cough and shortness of breath x 3 days ( current smoker). He initially believed it was just a cold and had been using alkaseltzer but on day of admission his cough was making him lightheaded and he felt tightness in his chest. He continues to smoke and has a mild history of COPD. He uses an albuterol inhaler PRN. He denied vomiting, fevers, sore throat , headache or diarrhea. In ED he was hypoxic with and O2 sat of 86% on room air. His CXR showed a cardiac silhouette that was at the upper limis of normal but no acute infiltrate. He was admitted for observation for suspected COPD exacerbation. Patient was placed on Solumedrol, Duonebs, and Levaquin while in hospital. He did well throughout his stay and on day of discharge he was sating 93% on room air. He was discharged in good condition with a follow-up appointment with his PCP Dr. Farias as well as prescriptions for Azithromycin, Prednisone, Advair, and Singular. He was instructed to return to ED if he had any return of his symptoms. - Patient Data Vitals - Most Recent: Last Vital Signs Temp 36.7 C 11/02/16 12:10 Pulse 87 11/02/16 12:10 Resp 20 11/02/16 12:10 BP 119/70 11/02/16 12:10 Pulse Ox 91 L 11/02/16 12:10 Weight - Most Recent: 99.138 kg I&O - Last 24 hours: Intake & Output 11/01/16 11/02/16 11/02/16 22:59 06:59 14:59 Intake Total 1200 1300 100 Output Total 925 1800 Balance 275 -500 100 Lab Results - Last 24 hrs: Laboratory Results - last 24 hr 11/01/16 11/02/16 11/02/16 Range/Units 20:12 04:35 04:35 WBC 13.08 H (4.0-11.0) K/uL RBC 4.04 L (4.50-5.90) M/uL Hgb 13.1 (13.0-17.0) g/dL Hct 38.8 (38.0-50.0) % MCV 96.0 (80.0-98.0) fL MCH 32.4 H (27.0-32.0) pg MCHC 33.8 (31.0-37.0) g/dL RDW Std Deviation 46.7 (28.0-62.0) fl RDW Coeff of Janey 13 (11.0-15.0) % Plt Count 164 (150-400) K/uL MPV 9.00 (7.40-12.00) fL Neut % (Auto) 91.4 H (48.0-80.0) % Lymph % (Auto) 5.1 L (16.0-40.0) % Cotton % (Auto) 3.4 (0.0-15.0) % Eos % (Auto) 0.0 (0.0-7.0) % Baso % (Auto) 0.1 (0.0-1.5) % Neut # (Auto) 12.0 H (1.4-5.7) K/uL Lymph # (Auto) 0.7 (0.6-2.4) K/uL Cotton # (Auto) 0.4 (0.0-0.8) K/uL Eos # (Auto) 0.0 (0.0-0.7) K/uL Baso # (Auto) 0.0 (0.0-0.1) K/uL Nucleated RBC % 0.0 /100WBC Nucleated RBCs # 0 K/uL Sodium 138 (136-146) mmol/L Potassium 4.6 (3.5-5.1) mmol/L Chloride 104 (98-110) mmol/L Carbon Dioxide 23 (21-31) mmol/L BUN 22 (6.0-23.0) mg/dL Creatinine 0.9 (0.6-1.5) mg/dL Est Cr Clr Drug Dosing 93.83 mL/min Estimated GFR (MDRD) > 60.0 ml/min Glucose 293 H (60-110) mg/dL POC Glucose 238 H (60-110) mg/dL Calcium 9.1 (8.8-10.8) mg/dL 11/02/16 Range/Units 11:24 WBC (4.0-11.0) K/uL RBC (4.50-5.90) M/uL Hgb (13.0-17.0) g/dL Hct (38.0-50.0) % MCV (80.0-98.0) fL MCH (27.0-32.0) pg MCHC (31.0-37.0) g/dL RDW Std Deviation (28.0-62.0) fl RDW Coeff of Janey (11.0-15.0) % Plt Count (150-400) K/uL MPV (7.40-12.00) fL Neut % (Auto) (48.0-80.0) % Lymph % (Auto) (16.0-40.0) % Cotton % (Auto) (0.0-15.0) % Eos % (Auto) (0.0-7.0) % Baso % (Auto) (0.0-1.5) % Neut # (Auto) (1.4-5.7) K/uL Lymph # (Auto) (0.6-2.4) K/uL Cotton # (Auto) (0.0-0.8) K/uL Eos # (Auto) (0.0-0.7) K/uL Baso # (Auto) (0.0-0.1) K/uL Nucleated RBC % /100WBC Nucleated RBCs # K/uL Sodium (136-146) mmol/L Potassium (3.5-5.1) mmol/L Chloride (98-110) mmol/L Carbon Dioxide (21-31) mmol/L BUN (6.0-23.0) mg/dL Creatinine (0.6-1.5) mg/dL Est Cr Clr Drug Dosing mL/min Estimated GFR (MDRD) ml/min Glucose (60-110) mg/dL POC Glucose 179 H (60-110) mg/dL Calcium (8.8-10.8) mg/dL Med Orders - Current: Current Medications Acetaminophen (Tylenol) 650 mg PO Q4H PRN PRN Reason: Pain (Mild 1-3)/fever Albuterol/Ipratropium (Duoneb 3.0-0.5 Mg/3 Ml) 3 ml NEB Q4HRRT [facility] Last Admin: 11/02/16 11:34 Dose: 3 ml Aspirin (Halfprin) 81 mg PO DAILY [facility] Last Admin: 11/02/16 09:09 Dose: 81 mg Benzocaine/Menthol (Cepacol Sore Throat) 1 lozenge MUCMEM Q4H PRN PRN Reason: Sore Throat Last Admin: 11/01/16 18:22 Dose: 1 lozenge Benzonatate (Tessalon Perles) 200 mg PO TID PRN PRN Reason: Cough Last Admin: 11/02/16 07:17 Dose: 200 mg Bisacodyl (Dulcolax) 5 mg PO DAILY PRN PRN Reason: Constipation Enoxaparin Sodium (Lovenox) 40 mg SUBCUT DAILY [facility] Last Admin: 11/02/16 09:13 Dose: 40 mg Glimepiride (Glimepiride) 4 mg PO BID [facility] Last Admin: 11/02/16 09:09 Dose: 4 mg Levofloxacin/Dextrose 500 mg/ (Premix) 100 mls @ 100 mls/hr IV Q24H [facility] Last Admin: 11/02/16 08:32 Dose: 100 mls/hr Insulin Aspart (Novolog) 0 unit SUBCUT ACBED [facility] PRN Reason: Protocol Last Admin: 11/02/16 11:39 Dose: 2 unit Metformin HCl (Glucophage Xr) 1,000 mg PO BIDMEALS [facility] Last Admin: 11/02/16 09:06 Dose: 1,000 mg Methylprednisolone Sodium Succinate (Solu-Medrol) 125 mg IVPUSH Q12H [facility] Last Admin: 11/02/16 08:23 Dose: 125 mg Multivitamins/Minerals/Vitamin C (Tab-A-Clayton) 1 tab PO DAILY [facility] Last Admin: 11/02/16 09:10 Dose: 1 tab Krill/Om-3/Dha/Epa/Phospho/Ast [Krill Oil] 1,000mg 1 each PO DAILY [facility] Last Admin: 11/02/16 09:17 Dose: Not Given Linagliptin 5mg Tab 1 each PO DAILY [facility] Last Admin: 11/02/16 09:17 Dose: Not Given Pioglitazone HCl (Actos) 30 mg PO DAILY [facility] Last Admin: 11/02/16 09:12 Dose: 30 mg Ramipril (Altace) 2.5 mg PO DAILY [facility] Last Admin: 11/02/16 09:08 Dose: 2.5 mg Simvastatin (Zocor) 40 mg PO DAILY [facility] Last Admin: 11/02/16 09:10 Dose: 40 mg Temazepam (Restoril) 15 mg PO BEDTIME PRN PRN Reason: Sleep Discontinued Medications Albuterol/Ipratropium (Duoneb 3.0-0.5 Mg/3 Ml) Confirm Administered Dose 3 ml .ROUTE .STK-MED ONE Stop: 10/31/16 19:47 Last Admin: 10/31/16 19:52 Dose: 3 ml Albuterol/Ipratropium (Duoneb 3.0-0.5 Mg/3 Ml) 3 ml NEB ONETIME ONE Stop: 10/31/16 19:53 Last Admin: 10/31/16 20:18 Dose: Not Given Albuterol/Ipratropium (Duoneb 3.0-0.5 Mg/3 Ml) 3 ml NEB ONETIME ONE Stop: 10/31/16 20:16 Last Admin: 10/31/16 20:30 Dose: 3 ml Azithromycin 500 mg/ Sodium (Chloride) 250 mls @ 250 mls/hr IV ONETIME ONE Stop: 10/31/16 21:39 Last Admin: 10/31/16 22:17 Dose: 250 mls/hr Ceftriaxone Sodium/Dextrose 1 (gm/ Premix) 50 mls @ 100 mls/hr IV ONETIME ONE Stop: 10/31/16 21:10 Last Admin: 10/31/16 21:22 Dose: 100 mls/hr Methylprednisolone Sodium Succinate (Solu-Medrol) 125 mg IVPUSH ONETIME ONE Stop: 10/31/16 20:56 Last Admin: 10/31/16 21:20 Dose: 125 mg *Q Meaningful Use (DIS) - VTE *Q VTE Criteria *Q: - Stroke *Q Stroke Criteria *Q: - AMI *Q AMI Criteria *Q:
--- NOTE | 2016-11-02 17:58 | CR ---
EXAM DATE: 10/31/16 PATIENT'S AGE: 56 Patient: MELI EVANS Facility: [place], [place] Site . Site : [id number] Study: XRay Chest [id number]/25/2017 8:25:11 PM Ordering Physician: Doctor Matthews Final Report: HISTORY: Pain, shortness of breath. FINDINGS: PA and lateral chest radiographs compared with 28 September 2011. The cardiac silhouette at the upper limits of normal. Pulmonary vasculature is free cephalization. There is some trace peribronchial cuffing present. No lobar consolidation or pleural effusion is seen. There is chronic deformity of the right 3rd rib without change. IMPRESSION: 1. Cardiac silhouette is at the upper limits of normal. There are small amount of peribronchial cuffing suggesting pulmonary venous congestion. 2. No acute infiltrate. Dictated by Alexa Adame MD @ 10/31/2016 8:49:29 PM Dictated by: Alexa Adame MD @ 10/31/2016 20:49:33 (Electronic Signature) Report Signed by Proxy and Original Signed Document filed in the Medical Record. [facility]
== END 2016-11-02 14:05 | disposition home or self-care (01) ==
LOC: MW.ED 19:41 → MW.MS 21:00
PROVIDERS: ADMIT Family Medicine; ATTEND Family Medicine
DX: J44.1 Chronic obstructive pulmonary disease with (acute) exacerbation (principal); E11.22 Type 2 diabetes mellitus with diabetic chronic kidney disease; I12.9 Hypertensive chronic kidney disease with stage 1 through stage 4 chronic kidney disease, or unspecified chronic kidney disease; N18.9 Chronic kidney disease, unspecified; E66.9 Obesity, unspecified; Z79.82 Long term (current) use of aspirin; Z79.899 Other long term (current) drug therapy; Z91.040 Latex allergy status; Z90.49 Acquired absence of other specified parts of digestive tract; Z98.890 Other specified postprocedural states; Z68.30 Body mass index [BMI] 30.0-30.9, adult; F17.210 Nicotine dependence, cigarettes, uncomplicated; Z79.4 Long term (current) use of insulin
CPT/HCPCS: 36415; 71020; 80048; 80053; 82962; 83735; 85025; 87040; 87804; 93005; 94640; 94664; 96365; 96367; 96372; 96375; 96376; 99285; A9270; G0378; J0456; J0696; J1650; J1815; J1956; J2930; J7050

== ENCOUNTER → 2016-11-09 | Outpatient (CLI) | payer BC ==
[2016-11-09 09:31] LABS: CHLORIDE,CL 101 mmol/L (98-110); SODIUM,NA 137 mmol/L (136-146)
== END ==
LOC: MW.CHRC 08:30
PROVIDERS: ATTEND Family Medicine
DX: I10 Essential (primary) hypertension (principal); E78.00 Pure hypercholesterolemia, unspecified; E11.9 Type 2 diabetes mellitus without complications
CPT/HCPCS: 36415; 80053; 80061; 83036

== ENCOUNTER → 2016-11-16 | Outpatient (CLI) | payer BC ==
--- NOTE | 2016-11-17 13:35 | US ---
EXAM DATE: 11/16/16 PATIENT'S AGE: 56 Patient: MELI EVANS Facility: [place], [place] Site . Site : 1960 Study: US Head [id number]/10/2017 11:10:25 AM Ordering Physician: Dinora Solis Final Report: INDICATION: Possible right thyroid mass. TECHNIQUE: Conventional two-dimensional grayscale and color flow Doppler ultrasound of the thyroid gland. COMPARISON: None. FINDINGS: In the inferior right thyroid lobe is a solitary echogenic, solid and cystic nodule measuring 1.4 x 1.0 x 1.0 cm. This nodule contains no obvious microcalcifications. Color flow Doppler demonstrates blood flow within it. The thyroid parenchyma is otherwise unremarkable. The right lobe measures 5.4 x 2.1 x 1.8 cm and the left lobe 4.5 x 1.8 x 1.6 cm. The isthmus measures 5 mm in thickness. IMPRESSION: Solitary, echogenic, solid and cystic 1.4 x 1.0 x 1.0 cm inferior right lobe nodule. A 6 month follow up examination is suggested. Dictated by Reilly Mcgee MD @ Nov 16 2016 4:42PM (Electronic Signature) Report Signed by Proxy and Original Signed Document filed in the Medical Record. [facility]
== END ==
LOC: MW.US 10:24
PROVIDERS: ATTEND Family Medicine
DX: E07.9 Disorder of thyroid, unspecified (principal); E04.1 Nontoxic single thyroid nodule
CPT/HCPCS: 76536-26; 76536-50

== ENCOUNTER 2017-02-04 08:24 | Emergency (ER) | payer BC ==
[2017-02-04 08:43] VITALS: BP 151/79
--- NOTE | 2017-02-04 08:51 | EDM.PDOC ---
ED HPI GENERAL MEDICAL PROBLEM - General Chief Complaint: Lower Extremity Injury/Pain Stated Complaint: PAIN IN LEFT FOOT Time Seen by Provider: 02/04/17 08:44 - History of Present Illness INITIAL COMMENTS - FREE TEXT/NARRATIVE: HISTORY AND PHYSICAL: History of present illness: Patient is 56-year-old white male presents with concern of acute left foot injury that occurred when he was stepping off a tractor and twisted his foot he has pain only with weightbearing on the plantar surface of his foot he denies ankle or foot pain otherwise. Review of systems: As per history of present illness and below otherwise all systems reviewed and negative. Past medical history: As per history of present illness and as reviewed below otherwise noncontributory. Surgical history: As per history of present illness and as reviewed below otherwise noncontributory. Social history: No reported history of drug or alcohol abuse. Family history: As per history of present illness and as reviewed below otherwise noncontributory. Physical exam: HEENT: Atraumatic, normocephalic, pupils reactive, negative for conjunctival pallor or scleral icterus, mucous membranes moist, throat clear, neck supple, nontender, trachea midline. Lungs: Clear to auscultation, breath sounds equal bilaterally, chest nontender. Heart: S1S2, regular, negative for clicks, rubs, or JVD. Abdomen: Soft, nondistended, nontender. Negative for masses or hepatosplenomegaly. Negative for costovertebral tenderness. Pelvis: Stable nontender. Genitourinary: Deferred. Rectal: Deferred. Extremities: No bony tenderness had some mild tenderness to palpation of his plantar surface of his left foot there is no swelling CMS and neurovascular exams unremarkable Neuro: Awake, alert, oriented. Cranial nerves II through XII unremarkable. Cerebellum unremarkable. Motor and sensory unremarkable throughout. Exam nonfocal. Diagnostics: X-ray left foot Therapeutics: To be determined Impression: #1 acute left foot injury Definitive disposition and diagnosis as appropriate pending reevaluation and review of above. Sole of Left Foot Pain Score (Numeric/FACES): 8 - Related Data Allergies Allergy/AdvReac Type Severity Reaction Status Date / Time latex Allergy Swelling Verified 02/04/17 08:40 Home Meds: Home Meds Aspirin [Halfprin] 81 mg PO DAILY 08/14/15 [History] Glimepiride 4 mg PO BID 08/14/15 [History] Krill/Om-3/DHA/EPA/Phospho/Ast [Krill Oil 1,000 mg Softgel] 1 cap PO DAILY 08/14 [History] Linagliptin [Tradjenta] 5 mg PO DAILY 08/14/15 [History] Multivitamin [Multi-Day Vitamins] 1 tab PO DAILY 08/14/15 [History] Ramipril [Altace] 2.5 mg PO DAILY 08/14/15 [History] Simvastatin 40 mg PO BEDTIME 08/14/15 [History] metFORMIN HCl [Metformin HCl ER] 1,000 mg PO BIDMEALS 08/14/15 [History] Montelukast Sodium [Singulair] 10 mg PO DAILY #14 tablet 11/02/16 [Rx] Canagliflozin [Invokana] 0 mg PO DAILY 02/04/17 [History] Past Medical History Cardiovascular History: Reports: Hypertension Respiratory History: Reports: COPD Gastrointestinal History: Reports: Other (See Below) Other Gastrointestinal History: Heartburn occasionally Musculoskeletal History: Reports: Fracture Other Musculoskeletal History: Left sided Sciatic Nerve Pain, hx: fracturing knuckles, Rt arm, finger, ankle Endocrine/Metabolic History: Reports: Diabetes, Type II, Obesity/BMI 30+ Hematologic History: Reports: Blood Transfusion(s) Other Hematologic History: Blood transfusion after my tonsillectomy when I was 10 yrs old Oncologic (Cancer) History: Reports: None Dermatologic History: Reports: Other (See Below) Other Dermatologic History: Rash to hands, think it is from 'welding' - Infectious Disease History Infectious Disease History: Reports: Chicken Pox, Measles, Mumps - Past Surgical History HEENT Surgical History: Reports: Naso-Sinus Surgery, Tonsillectomy GI Surgical History: Reports: Appendectomy Social & Family History - Family History Family Medical History: Noncontributory - Tobacco Use Smoking Status *Q: Former Smoker Years of Tobacco use: 38 Packs/Tins Daily: 2.5 Used Tobacco, but Quit: Yes Month Tobacco Last Used: November Second Hand Smoke Exposure: Yes - Caffeine Use Caffeine Use: Reports: Coffee, Tea - Recreational Drug Use Recreational Drug Use: No Drug Use in Last 12 Months: No Review of Systems - Review of Systems Review Of Systems: ROS reveals no pertinent complaints other than HPI. ED EXAM, GENERAL - Physical Exam Exam: See Below (See dictation) Course - Vital Signs Last Recorded V/S: Last Vital Signs Temp 36.9 C 02/04/17 08:40 Pulse 98 02/04/17 08:40 Resp 18 02/04/17 08:40 BP 151/79 H 02/04/17 08:40 Pulse Ox 94 L 02/04/17 08:40 Departure - Departure Time of Disposition: 09:32 Disposition: Home, Self-Care 01 Condition: Good Clinical Impression: Plantar fasciitis - Discharge Information Forms: ED Department Discharge Additional Instructions: The following information is given to patients seen in the emergency department who are being discharged to home. This information is to outline your options for follow-up care. We provide all patients seen in our emergency department with a follow-up referral. The need for follow-up, as well as the timing and circumstances, are variable depending upon the specifics of your emergency department visit. If you don't have a primary care physician on staff, we will provide you with a referral. We always advise you to contact your personal physician following an emergency department visit to inform them of the circumstance of the visit and for follow-up with them and/or the need for any referrals to a consulting specialist. The emergency department will also refer you to a specialist when appropriate. This referral assures that you have the opportunity for followup care with a specialist. All of these measure are taken in an effort to provide you with optimal care, which includes your followup. Under all circumstances we always encourage you to contact your private physician who remains a resource for coordinating your care. When calling for followup care, please make the office aware that this follow-up is from your recent emergency room visit. If for any reason you are refused follow-up, please contact the [facility] emergency department at and asked to speak to the emergency department charge nurse. Activity as discussed Motrin/Tylenol as directed follow-up primary medical doctor/podiatry return as needed as discussed
--- NOTE | 2017-02-04 09:02 | CR ---
EXAMINATION: Left foot HISTORY: Pain COMPARISON: None TECHNIQUE: 3 views FINDINGS: There is no acute osseous abnormality, dislocation, or fracture identified. Bone mineraliz ation and joint spaces are grossly preserved. There is an accessory navicular ossification. Accessor y ossification near the calcaneal cuboid articulation. Mild soft tissue swelling is noted along the lateral aspect of the foot. Mild degenerative changes noted at the first MTP joint. No foreign body noted. IMPRESSION: Degenerative changes without acute osseous abnormality identified.
== END 2017-02-04 09:39 | disposition home or self-care (01) ==
LOC: MW.ED 08:24
DX: S99.922A Unspecified injury of left foot, initial encounter (principal); M72.2 Plantar fascial fibromatosis; I10 Essential (primary) hypertension; J44.9 Chronic obstructive pulmonary disease, unspecified; E11.9 Type 2 diabetes mellitus without complications; E66.9 Obesity, unspecified; Z90.49 Acquired absence of other specified parts of digestive tract; Z98.890 Other specified postprocedural states; Z87.891 Personal history of nicotine dependence; Z79.82 Long term (current) use of aspirin; Z79.899 Other long term (current) drug therapy; Z91.040 Latex allergy status; Z79.84 Long term (current) use of oral hypoglycemic drugs; X50.1XXA Overexertion from prolonged static or awkward postures, initial encounter
CPT/HCPCS: 73630-26-LT; 73630-LT; 99282; 99283